=== PATIENT | male | born 1945 | race Two or more races ===

== ENCOUNTER 2025-08-25 14:52 | Inpatient (IN) | payer OTHER ==
[~2025-08-25] VITALS: Ht 170.2 cm; Wt 60.3 kg
--- NOTE | 2025-08-25 15:33 | NUR ---
SE RECIBE PACIENTE ALERTA Y ORIENTADO X3 EL CUAL REFIERE VENIR CON REFERIDO DE PORRAS CARDIOLOGO MEGHAN NELSON POR ARRITMIAS Y DIFICULTAD RESPIRATORIA. SE MIDEN S/V Y SE UBICA.
[2025-08-25] MEDS ORDERED: AMIODARONE HCL 50 MG/ML AMPUL IV ONE (17:00)
[2025-08-25] MEDS ORDERED: ACETAMINOPHEN 500 MG GEL..CAP PO ONE (17:00)
[2025-08-25] MEDS ORDERED: AMIODARONE HCL 900 MG in DEXTROSE 5 % IN WATER 500 ML IV SCH (17:00)
[2025-08-25 17:39] LABS: BASO % 0.4 % (0.1-1.2); EOS # 0.06 (0.04-0.54); EOS % 0.8 % (0.7-7.0); LYMPH # 1.53 (1.18-3.74); LYMPH % 21.1 % (19.3-53.1); MEAN PLATELET VOLUME 9.80 fl (9.4-12.4); MONO # 0.47 (0.24-0.82); MONO % 6.5 % (4.7-12.5); NEUT # 5.12 (1.56-6.13); NEUT % 70.8 % (34.0-71.1); RED CELL DISTRIBUTION WIDTH 14.7 % (11.6-14.4)
--- NOTE | 2025-08-25 17:42 | NUR ---
SE EDUCA A PACIENTE SOBRE TRATAMIENTO MEDICO EL CUAL REFIERE ENTENDER, SE REALIZA DON DE MUESTRAS Y SE ADMINISTRA MEDICAMENTOS KRIS ORDEN MEDICA Y BAJO MEDIDAS ASEPTICAS.
[2025-08-25 18:08] LABS: INR 1.19
[2025-08-25 18:16] LABS: ALT/SGPT 26.0 U/L (12-78); AST/SGOT 32.0 U/L (15-37); BILIRUBIN TOTAL 1.12 mg/dL (0.3-1.2); BUN CREA RATIO 19.0 (7.0-25.0); CREATININE SERUM 1.48 mg/dL (0.70-1.30); GFR 45.73; GLOBULINA 4.1 G/DL (2.4-3.5); GLUCOSE FASTING 124.0 mg/dL (65-100); OSMOLALITY SERUM 290.0 MOSM/KG (275-295)
[2025-08-25 18:37] LABS: URINE APPEARANCE Clear; URINE BILIRRUBIN Negative (NEGATIVE); URINE BLOOD Trace; URINE COLOR Yellow; URINE GLUCOSE Negative (NEGATIVE); URINE KETONE Negative (NEGATIVE); URINE LEUKOCYTE Negative; URINE NITRATE Negative; URINE PROTEIN Negative (NEGATIVE); URINE UROBILINOGEN 1.0 E.U./dl
[2025-08-25 18:42] LABS: URINE BACTERIA 77.8 uL (0.0-1933); URINE EPITHELIAL CELLS 1.6 uL (0.0-38.8); URINE RBC 6.4 uL (0.0-20.8)
[2025-08-25 18:53] LABS: URINE CAST 0.00 uL (0.0-1.40); URINE WBC 1.3 uL (0.0-23.2)
[2025-08-25 18:56] LABS: COVID-19 AG NEGATIVE (NEGATIVE)
[2025-08-25] MEDS ORDERED: ENOXAPARIN SODIUM 60 MG/0.6 ML SYRINGE SUBCUTANEO ONE (19:15)
[2025-08-25 22:25] VITALS: BP 117/78; BP 121/88; O2SAT 98
[2025-08-26] VITALS (16 sets, daily range): BP systolic 105–161; BP diastolic 77–110; O2SAT 95–100
[2025-08-26] MEDS ORDERED: ENALAPRILAT DIHYDRATE 1.25 MG/ML VIAL IV STA (04:11)
[2025-08-26] MEDS ORDERED: PATIENTS OWN MEDICATION (MEDICAMENTO EN PISO) PO SCH (09:00)
[2025-08-26] MEDS ORDERED: ENOXAPARIN SODIUM 60 MG/0.6 ML SYRINGE SUBCUTANEO SCH (09:00)
[2025-08-26] MEDS ORDERED: ATORVASTATIN CALCIUM 40 MG TABLET PO SCH (09:00)
[2025-08-26] MEDS ORDERED: METOPROLOL SUCCINATE 25 MG TAB.SR.24H PO SCH (09:00)
[2025-08-26] MEDS ORDERED: AMIODARONE HCL 900 MG/500 ML KIT IV ONE (23:55)
[2025-08-27] VITALS (9 sets, daily range): BP systolic 109–155; BP diastolic 77–95; O2SAT 96–99
[2025-08-27 14:46] LABS: BASO % 0.2 % (0.1-1.2); EOS # 0.00 (0.04-0.54); EOS % 0.0 % (0.7-7.0); LYMPH # 1.19 (1.18-3.74); LYMPH % 12.2 % (19.3-53.1); MEAN PLATELET VOLUME 11.60 fl (9.4-12.4); MONO # 0.91 (0.24-0.82); MONO % 9.4 % (4.7-12.5); NEUT # 7.55 (1.56-6.13); NEUT % 77.7 % (34.0-71.1); RED CELL DISTRIBUTION WIDTH 14.6 % (11.6-14.4)
[2025-08-27 15:26] LABS: BUN CREA RATIO 18.0 (7.0-25.0); CREATININE SERUM 1.52 mg/dL (0.70-1.30); GFR 44.35; GLUCOSE FASTING 144.0 mg/dL (65-100); OSMOLALITY SERUM 283.0 MOSM/KG (275-295)
[2025-08-27] MEDS ORDERED: DOCUSATE SODIUM 100MG CAP PO SCH (21:00)
[2025-08-27] MEDS ORDERED: AMIODARONE HCL 200 MG TABLET PO SCH (21:00)
[2025-08-27] MEDS ORDERED: METOPROLOL SUCCINATE 25 MG TAB.SR.24H PO SCH (21:00)
[2025-08-27] MEDS ORDERED: MELATONIN 5 MG TABLET PO SCH (21:00)
[2025-08-28] VITALS (8 sets, daily range): BP systolic 94–113; BP diastolic 61–73; O2SAT 90–100
[2025-08-28] MEDS ORDERED: METOPROLOL SUCCINATE 50 MG TAB.SR.24H PO SCH (09:00)
[2025-08-28] MEDS ORDERED: APIXABAN 5 MG TABLET PO SCH (09:00)
[2025-08-28] MEDS ORDERED: DIGOXIN 0.25 MG/ML AMPUL IV SCH (18:01)
[2025-08-28] MEDS ORDERED: AMIODARONE HCL 200 MG TABLET PO SCH (21:00)
[2025-08-29] VITALS (8 sets, daily range): BP systolic 113–126; BP diastolic 74–86; O2SAT 96–100
[2025-08-29] MEDS ORDERED: DIGOXIN 0.25 MG/ML AMPUL IV NR (14:00)
[2025-08-29] MEDS ORDERED: DIGOXIN 0.125 MG TABLET PO SCH (21:51)
[2025-08-30 00:52] VITALS: BP 90/61; O2SAT 95
[2025-08-30 00:58] VITALS: O2SAT 100
[2025-08-30 03:39] VITALS: O2SAT 95
[2025-08-30 06:51] LABS: ALT/SGPT 34.0 U/L (12-78); AST/SGOT 44.0 U/L (15-37); BILIRUBIN TOTAL 1.2 mg/dL (0.3-1.2); BUN CREA RATIO 24.0 (7.0-25.0); CREATININE SERUM 1.38 mg/dL (0.70-1.30); GFR 49.58; GLOBULINA 3.5 G/DL (2.4-3.5); GLUCOSE FASTING 99.0 mg/dL (65-100); OSMOLALITY SERUM 287.0 MOSM/KG (275-295)
[2025-08-30 08:52] VITALS: BP 135/88
[2025-08-30] MEDS ORDERED: METOPROLOL SUCCINATE 50 MG TAB.SR.24H PO SCH (09:00)
[2025-08-30 10:04] VITALS: O2SAT 97
[2025-08-30] MEDS ORDERED: ELIQUIS5 MG PO (11:54)
[2025-08-30] MEDS ORDERED: LIPITOR40 M1 PO (11:54)
[2025-08-30] MEDS ORDERED: AMIODARONE HCL200 MG PO (11:54)
[2025-08-30] MEDS ORDERED: LANOXIN125 MCG PO (11:54)
[2025-08-30] MEDS ORDERED: TOPROL XL50 M1 PO (11:55)
[2025-08-30] MEDS ORDERED: LASIX20 MG PO (11:57)
[2025-08-30] MEDS ORDERED: PROTONIX40 MG PO (11:58)
== END 2025-08-30 16:51 | disposition home or self-care (01) | DRG 308 ==
LOC: ER 14:52 → ICU-2 22:17 → MEDI 22:17
PROVIDERS: General Practice; Internal Medicine; ADMIT Internal Medicine; ATTEND Internal Medicine
PROC: 4A12X4Z Monitoring of Cardiac Electrical Activity, External Approach (ICD-10-PCS; principal; 2025-08-25)
PROC: B246ZZZ Ultrasonography of Right and Left Heart (ICD-10-PCS; 2025-08-25)
DX: I48.20 Chronic atrial fibrillation, unspecified (principal); I50.23 Acute on chronic systolic (congestive) heart failure; I13.0 Hypertensive heart and chronic kidney disease with heart failure and stage 1 through stage 4 chronic kidney disease, or unspecified chronic kidney disease; I38 Endocarditis, valve unspecified; G47.09 Other insomnia; N18.9 Chronic kidney disease, unspecified; C61 Malignant neoplasm of prostate; E78.5 Hyperlipidemia, unspecified; Z95.810 Presence of automatic (implantable) cardiac defibrillator; Z87.891 Personal history of nicotine dependence; Z79.01 Long term (current) use of anticoagulants